=== PATIENT | female | born 1935 | race Caucasian/White ===

== ENCOUNTER 2016-12-19 14:54 | Inpatient (IN) | payer MEDICARE, BC ==
--- NOTE | 2016-12-19 15:20 | EDM.PDOC ---
ED HPI GENERAL MEDICAL PROBLEM - General Chief Complaint: General Stated Complaint: trouble breathing, swollen ankles Time Seen by Provider: 12/19/16 15:10 Source of Information: Reports: Patient History Limitations: Reports: No Limitations - History of Present Illness INITIAL COMMENTS - FREE TEXT/NARRATIVE: Patient is a 81-year-old female who was transferred from the [facility] with chief complaint of chest tightness shortness of breath cold sweats for the past 10 days oxygen saturation 75% on room air on arrival Onset: Gradual Duration: Day(s):, Getting Worse Location: Reports: Chest Severity: Moderate Improves with: Reports: Other (Fan blowing into her face) Worsens with: Reports: Other (Lying on her back) Associated Symptoms: Reports: Fever/Chills - Related Data Allergies Allergy/AdvReac Type Severity Reaction Status Date / Time codeine Allergy Other Verified 12/19/16 15:47 Home Meds: Home Meds Albuterol Sulfate [Proair Hfa] 2 puff IH Q6HR PRN 12/19/16 [History] Aspirin [Halfprin] 1 tab PO DAILY 12/19/16 [History] Fluticasone/Salmeterol [Advair Hfa 230-21 Mcg Inhaler] 1 puff IH BID 12/19/16 [ History] Furosemide [Furosemide] 1 tab PO BID 12/19/16 [History] Furosemide [Lasix] 20 mg PO SUTUTHSA 12/19/16 [History] Furosemide [Lasix] 40 mg PO MOWEFR 12/19/16 [History] Polyethylene Glycol [Polyox Wsr-301] 1 applic EYEBOTH DAILY 12/19/16 [History] Sennosides/Docusate Sodium [Senna-Docusate Sodium Tablet] 1 each PO BID [History] traMADol HCl [Ultram] 50 mg PO Q8HR PRN 12/19/16 [History] Social & Family History - Tobacco Use Smoking Status *Q: Former Smoker Used Tobacco, but Quit: Yes Month Tobacco Last Used: 01 - Caffeine Use Caffeine Use: Reports: None - Recreational Drug Use Recreational Drug Use: No ED ROS GENERAL - Review of Systems Review Of Systems: See Below Constitutional: Reports: Chills, Night Sweats Respiratory: Reports: Shortness of Breath, Cough, Sputum Cardiovascular: Reports: No Symptoms Endocrine: Reports: No Symptoms GI/Abdominal: Reports: No Symptoms : Reports: No Symptoms Musculoskeletal: Reports: No Symptoms Skin: Reports: No Symptoms Neurological: Reports: No Symptoms Psychiatric: Reports: No Symptoms Hematologic/Lymphatic: Reports: No Symptoms ED EXAM, GENERAL - Physical Exam Exam: See Below Exam Limited By: No Limitations General Appearance: WD/WN, Mild Distress, Thin Eye Exam: Bilateral Eye: EOMI, PERRL Ears: Normal External Exam, Normal Canal, Hearing Grossly Normal, Normal TMs Nose: Normal Inspection, Normal Mucosa, No Blood Throat/Mouth: Normal Inspection, Normal Lips, Normal Teeth, Normal Gums, Normal Oropharynx, Normal Voice, No Airway Compromise, Other (Patient is very raspy) Head: Atraumatic, Normocephalic Neck: Normal Inspection, Supple, Non-Tender, Full Range of Motion Respiratory/Chest: Decreased Breath Sounds, Crackles (Right base), Rales (Right base), Wheezing, Stridor, Prolonged Expiration Cardiovascular: Normal Peripheral Pulses, Regular Rate, Rhythm, No Edema, No Gallop, No JVD, No Murmur, No Rub Peripheral Pulses: 0: Posterior Tibial (R), 1+: Posterior Tibial (L) ( dopplerable), 2+: Dorsalis Pedis (L), Dorsalis Pedis (R) GI/Abdominal: Normal Bowel Sounds, Soft, Non-Tender, No Organomegaly, No Distention, No Abnormal Bruit, No Mass (Female) Exam: Deferred Rectal (Female) Exam: Deferred Back Exam: Normal Inspection, Full Range of Motion, NT Extremities: Normal Inspection, Normal Range of Motion, Non-Tender, Normal Capillary Refill, No Pedal Edema Neurological: Alert, Oriented, CN II-XII Intact, Normal Cognition, Normal Gait, Normal Reflexes, No Motor/Sensory Deficits Psychiatric: Normal Affect, Normal Mood Skin Exam: Warm, Dry, Intact, Normal Color, No Rash Course - Vital Signs Last Recorded V/S: Last Vital Signs Temp 97.6 F 12/19/16 14:56 Pulse 101 H 12/19/16 14:56 Resp 20 12/19/16 14:58 BP 151/59 H 12/19/16 14:56 Pulse Ox 97 12/19/16 14:58 - Orders/Labs/Meds Orders: Active Orders 24 hr Category Date Time Status RT Aerosol Therapy [RC] ASDIRECTED Care 12/19/16 15:35 Ordered Chest 2V [CR] Stat Exams 12/19/16 15:03 Ordered CULTURE BLOOD [BC] Stat Lab 12/19/16 15:20 Ordered CULTURE BLOOD [BC] Stat Lab 12/19/16 15:20 Ordered CULTURE SPUTUM + SMEAR [RM] Stat Lab 12/19/16 15:27 Uncollected UA W/MICROSCOPIC [URIN] Stat Lab 12/19/16 15:40 Uncollected Sodium Chloride 0.9% [Saline Flush] Med 12/19/16 15:35 Ordered 10 ml FLUSH ASDIRECTED PRN Blood Culture x2 Reflex Set [OM.PC] Stat Oth 12/19/16 15:20 Ordered Saline Lock Insert [OM.PC] Stat Oth 12/19/16 15:36 Ordered Medication Orders Sodium Chloride (Saline Flush) 10 ml FLUSH ASDIRECTED PRN PRN Reason: Keep Vein Open Labs: Laboratory Tests 12/19/16 12/19/16 Range/Units 15:02 15:03 WBC 9.0 (4.0-10.2) K/uL RBC 4.86 (3.77-5.09) M/uL Hgb 15.1 (11.7-15.5) g/dL Hct 46.4 H (34.0-46.0) % MCV 95.5 D (84.0-98.0) fL MCH 31.1 (28.2-33.3) pg MCHC 32.5 (31.7-36.0) g/dL RDW 14.9 H (11.2-14.1) % Plt Count 104 L (150-350) K/uL Neut % (Auto) 77.3 (45.0-80.0) % Lymph % (Auto) 5.1 L (10.0-50.0) % [place] % (Auto) 15.6 H (2.0-14.0) % Eos % (Auto) 1.7 (0.0-5.0) % Baso % (Auto) 0.3 (0.0-2.0) % Neut # (Auto) 6.96 (1.40-7.00) K/uL Lymph # (Auto) 0.46 L (0.50-3.50) K/uL [place] # (Auto) 1.41 H (0.00-1.00) K/uL Eos # (Auto) 0.15 (0.00-0.50) K/uL Baso # (Auto) 0.03 (0.00-0.20) K/uL Sodium 135 L D (136-145) mmol/L Potassium 4.6 (3.5-5.1) mmol/L Chloride 101 (98-107) mmol/L Carbon Dioxide 26.6 (21.0-32.0) mmol/L BUN 31 H (7-18) mg/dL Creatinine 0.82 (0.51-1.17) mg/dL Est Cr Clr Drug Dosing 44.67 mL/min Estimated GFR (MDRD) > 60 mL/min Glucose 97 (74-106) mg/dL Calcium 8.9 (8.5-10.1) mg/dL NT-Pro-B Natriuret Pep 1145 H (0-125) pg/mL Meds: Medications Generic Name Dose Route Start Last Admin Trade Name Freq PRN Reason Stop Dose Admin Sodium Chloride 10 ml 12/19/16 15:35 Saline Flush FLUSH ASDIRECTED PRN Keep Vein Open Discontinued Medications Generic Name Dose Route Start Last Admin Trade Name Freq PRN Reason Stop Dose Admin Albuterol/Ipratropium 3 ml 12/19/16 15:34 12/19/16 15:48 Duoneb 3.0-0.5 Mg/3 Ml NEB 12/19/16 15:35 3 ml ONETIME ONE Administration Departure - Departure Time of Disposition: 15:51 Disposition: Admitted As Inpatient 67 Condition: Poor Clinical Impression: CHF, Congestive heart failure, Hypoxemia, COPD (chronic obstructive pulmonary disease), Pneumonia - Discharge Information Referrals: Dorian Mcarthur PA [Primary Care Provider] - Forms: ED Department Discharge Care Plan Goals: Patient will be admitted for aggressive antibiotic treatment and diuresis we will continue her medicines for COPD - Problem List & Annotations (1) CHF, Congestive heart failure SNOMED Code(s): 58678303 Code(s): I50.9 - HEART FAILURE, UNSPECIFIED Status: Acute Annotation/ Comment:: At this time her BMP was 1145 chest x-ray reveals some congestion we will go ahead and admit her for diureses (2) COPD (chronic obstructive pulmonary disease) SNOMED Code(s): 68999643 Code(s): J44.9 - CHRONIC OBSTRUCTIVE PULMONARY DISEASE, UNSPECIFIED Status : Acute Annotation/Comment:: Past medical history of COPD hypoxemia we will admit her continue her medications (3) Pneumonia SNOMED Code(s): 010762924 Code(s): J18.9 - PNEUMONIA, UNSPECIFIED ORGANISM Status: Acute Annotation /Comment:: Chest x-ray revealed consolidation right middle and base we'll go ahead start her on antibiotics at this time patient lives at home therefore his community-acquired pneumonia Qualifiers: Pneumonia type: due to unspecified organism Laterality: left Lung location: lower lobe of lung Qualified Code(s): J18.1 - Lobar pneumonia, unspecified organism - Problem List Review Problem List Initiated/Reviewed/Updated: Yes - My Orders Last 24 Hours: My Active Orders 12/19/16 15:03 Chest 2V [CR] Stat 12/19/16 15:20 CULTURE BLOOD [BC] Stat CULTURE BLOOD [BC] Stat Blood Culture x2 Reflex Set [OM.PC] Stat 12/19/16 15:27 CULTURE SPUTUM + SMEAR [RM] Stat 12/19/16 15:35 RT Aerosol Therapy [RC] ASDIRECTED Sodium Chloride 0.9% [Saline Flush] 10 ml FLUSH ASDIRECTED PRN 12/19/16 15:36 Saline Lock Insert [OM.PC] Stat 12/19/16 15:40 UA W/MICROSCOPIC [URIN] Stat - Assessment/Plan Last 24 Hours: My Active Orders 12/19/16 15:03 Chest 2V [CR] Stat 12/19/16 15:20 CULTURE BLOOD [BC] Stat CULTURE BLOOD [BC] Stat Blood Culture x2 Reflex Set [OM.PC] Stat 12/19/16 15:27 CULTURE SPUTUM + SMEAR [RM] Stat 12/19/16 15:35 RT Aerosol Therapy [RC] ASDIRECTED Sodium Chloride 0.9% [Saline Flush] 10 ml FLUSH ASDIRECTED PRN 12/19/16 15:36 Saline Lock Insert [OM.PC] Stat 12/19/16 15:40 UA W/MICROSCOPIC [URIN] Stat
[2016-12-19] MEDS ORDERED: Albuterol/Ipratropium 3.0-0.5 MG/3 ML Neb Soln NEB ONE (15:34)
[2016-12-19 15:49] LABS: CHLORIDE,CL 101 mmol/L (98-107); SODIUM,NA 135 mmol/L (136-145)
[2016-12-19] MEDS ORDERED: Furosemide 20 MG Tab PO SCH ×2 (16:15→18:00)
[2016-12-19] MEDS ORDERED: traMADol 50 MG Tab PO PRN (16:15)
[2016-12-19] MEDS: Furosemide 40 MG/4 ML VIAL IVPUSH SCH (17:20)
[2016-12-19] MEDS: Sodium Chloride 0.9% 10 ML Syringe FLUSH PRN ×2 (17:20→22:10)
[2016-12-19] MEDS: methylPREDNISolone Sodium Succinate 40 MG/1 ML SDV IVPUSH SCH ×2 (17:29→22:10)
[2016-12-19] MEDS: Azithromycin 500 MG in Sodium Chloride 0.9% 250 ML IV SCH (17:36)
[2016-12-19] MEDS: cefTRIAXone 1 GM in Sodium Chloride 0.9% 100 ML IV SCH (19:49)
[2016-12-20] MEDS: methylPREDNISolone Sodium Succinate 40 MG/1 ML SDV IVPUSH SCH ×4 (03:59→21:56)
[2016-12-20] MEDS: Sodium Chloride 0.9% 10 ML Syringe FLUSH PRN ×7 (04:03→21:56)
[2016-12-20] MEDS: Albuterol/Ipratropium 3.0-0.5 MG/3 ML Neb Soln NEB PRN (04:12)
[2016-12-20] MEDS ORDERED: Enoxaparin 30 MG/0.3 ML Syringe SUBCUT SCH (08:00)
[2016-12-20] MEDS: Polyvinyl Alcohol 1.4% Ophth Soln 15 ML Bottle EYEBOTH SCH (08:03)
[2016-12-20] MEDS: Aspirin 81 MG Tab.EC PO SCH (08:03)
[2016-12-20] MEDS: Furosemide 40 MG/4 ML VIAL IVPUSH SCH (08:04)
[2016-12-20] MEDS: cefTRIAXone 1 GM in Sodium Chloride 0.9% 100 ML IV SCH ×2 (08:04→17:13)
[2016-12-20 08:09] LABS: CHLORIDE,CL 99 mmol/L (98-107); SODIUM,NA 135 mmol/L (136-145)
--- NOTE | 2016-12-20 11:59 | PCM.PN ---
- General Info Date of Service: 12/20/16 Admission Dx/Problem (Free Text): Pneumonia sepsis CHF patient overall doing better less short of breath able ambulate, swelling improved, no fever, still on oxygen, feeling much better Functional Status: Reports: Ambulating - Review of Systems General: Reports: No Symptoms HEENT: Reports: No Symptoms Pulmonary: Reports: Shortness of Breath Cardiovascular: Reports: No Symptoms Gastrointestinal: Reports: No Symptoms Genitourinary: Reports: No Symptoms Musculoskeletal: Reports: No Symptoms Skin: Reports: No Symptoms Neurological: Reports: No Symptoms Psychiatric: Reports: Agitation - Patient Data Vitals - Most Recent: Last Vital Signs Temp 97.9 F 12/20/16 08:00 Pulse 79 12/20/16 08:00 Resp 17 12/20/16 08:00 BP 121/61 12/20/16 08:00 Pulse Ox 94 L 12/20/16 08:00 Weight - Most Recent: 107 lb 6.406 oz I&O - Last 24 Hours: Intake & Output 12/19/16 12/20/16 12/20/16 22:59 06:59 14:59 Intake Total 690 840 Output Total 1600 300 Balance -910 540 Lab Results Last 24 Hours: Laboratory Results - last 24 hr 12/20/16 12/20/16 Range/Units 07:40 07:40 Sodium 135 L (136-145) mmol/L Potassium 4.0 (3.5-5.1) mmol/L Chloride 99 (98-107) mmol/L Carbon Dioxide 28.4 (21.0-32.0) mmol/L BUN 23 H (7-18) mg/dL Creatinine 0.71 (0.51-1.17) mg/dL Est Cr Clr Drug Dosing 48.60 mL/min Estimated GFR (MDRD) > 60 mL/min Glucose 160 H (74-106) mg/dL Calcium 8.2 L (8.5-10.1) mg/dL Magnesium 1.9 (1.8-2.4) mg/dL Med Orders - Current: Current Medications Albuterol/Ipratropium (Duoneb 3.0-0.5 Mg/3 Ml) 3 ml NEB Q4HRRT PRN PRN Reason: Shortness of Breath Last Admin: 12/20/16 04:12 Dose: 3 ml Artificial Tears (Liquitears 1.4% Ophth Soln) 1 ml EYEBOTH DAILY [facility] Last Admin: 12/20/16 08:03 Dose: 1 drop Aspirin (Halfprin) 81 mg PO DAILY [facility] Last Admin: 12/20/16 08:03 Dose: 81 mg Furosemide (Lasix) 40 mg IVPUSH DAILY [facility] Last Admin: 12/20/16 08:04 Dose: 40 mg Azithromycin 500 mg/ Sodium (Chloride) 250 mls @ 250 mls/hr IV Q24H [facility] Last Admin: 12/19/16 17:36 Dose: 250 mls/hr Ceftriaxone Sodium 1 gm/ (Sodium Chloride) 100 mls @ 200 mls/hr IV BID [facility] Last Admin: 12/20/16 08:04 Dose: 200 mls/hr Methylprednisolone Sodium Succinate (Solu-Medrol) 40 mg IVPUSH Q6H [facility] Last Admin: 12/20/16 10:49 Dose: 40 mg Senna/Docusate Sodium (Senna Plus) 1 tab PO BID [facility] Last Admin: 12/20/16 08:03 Dose: 1 tab Sodium Chloride (Saline Flush) 10 ml FLUSH ASDIRECTED PRN PRN Reason: Keep Vein Open Last Admin: 12/20/16 10:49 Dose: 10 ml Tramadol HCl (Ultram) 50 mg PO Q8H PRN PRN Reason: Pain Discontinued Medications Albuterol/Ipratropium (Duoneb 3.0-0.5 Mg/3 Ml) 3 ml NEB ONETIME ONE Stop: 12/19/16 15:35 Last Admin: 12/19/16 15:48 Dose: 3 ml Furosemide (Lasix) mg PO BID [facility] Furosemide (Lasix) 20 mg PO SUTUTHSA [facility] Furosemide (Lasix) 40 mg PO MOWEFR [facility] Last Admin: 12/19/16 17:24 Dose: Not Given - Exam Quality Assessment: Supplemental Oxygen General: Alert, Oriented HEENT: Pupils Equal, Pupils Reactive, EOMI, Mucous Membr. Moist/[place] Neck: Supple Lungs: Decreased Breath Sounds, Rales (Right base) Cardiovascular: Regular Rate, Regular Rhythm GI/Abdominal Exam: Normal Bowel Sounds (Female) Exam: Deferred Extremities: Pedal Edema (Improvement) Skin: Warm, Dry, Intact Neurological: No New Focal Deficit Psy/Mental Status: Alert, Normal Affect, Normal Mood - Problem List & Annotations (1) CHF, Congestive heart failure SNOMED Code(s): 85662605 Code(s): I50.9 - HEART FAILURE, UNSPECIFIED Status: Acute Current Visit: Yes Annotation/Comment:: Patient breathing easier lower extremity edema significantly improved will continue her on Lasix IV (2) COPD (chronic obstructive pulmonary disease) SNOMED Code(s): 68659795 Code(s): J44.9 - CHRONIC OBSTRUCTIVE PULMONARY DISEASE, UNSPECIFIED Status : Acute Current Visit: Yes Qualifiers: COPD type: COPD with acute lower respiratory infection Qualified Code(s): J44.0 - Chronic obstructive pulmonary disease with acute lower respiratory infection Annotation/Comment:: Blood cultures positive for strep pneumo patient on appropriate antibiotics (3) Pneumonia SNOMED Code(s): 129792545 Code(s): J18.9 - PNEUMONIA, UNSPECIFIED ORGANISM Status: Acute Current Visit: Yes Qualifiers: Pneumonia type: due to unspecified organism Laterality: left Lung location: lower lobe of lung Qualified Code(s): J18.1 - Lobar pneumonia, unspecified organism Annotation/Comment:: Chest x-ray revealed consolidation right middle and base we 'll go ahead start her on antibiotics at this time patient lives at home therefore his community-acquired pneumonia (4) Sepsis SNOMED Code(s): 36198395 Code(s): A41.9 - SEPSIS, UNSPECIFIED ORGANISM Status: Acute Current Visit : Yes Qualifiers: Sepsis type: Pneumococcus Qualified Code(s): A40.3 - Sepsis due to Streptococcus pneumoniae Annotation/Comment:: Patient on appropriate antibiotics feeling much better we' ll continue antibiotics IV - Problem List Review Problem List Initiated/Reviewed/Updated: Yes - My Orders Last 24 Hours: My Active Orders 12/19/16 16:03 Patient Status [ADT] Routine Ambulate [RC] ASDIRECTED May Shower [RC] ASDIRECTED Up ad Katya [RC] ASDIRECTED Vital Signs [RC] Q4H 12/19/16 16:08 Oxygen Therapy [RC] CONTINUOUS 12/19/16 16:09 Antiembolic Devices [RC] .Routine VTE/DVT Education [RC] PER UNIT ROUTINE 12/19/16 16:13 Albuterol/Ipratropium [DuoNeb 3.0-0.5 MG/3 ML] 3 ml NEB Q4HRRT PRN 12/19/16 16:14 RT Aerosol Therapy [RC] ASDIRECTED 12/19/16 16:15 Azithromycin [Zithromax] 500 mg Sodium Chloride 0.9% [Normal Saline] 250 ml IV Q24H Furosemide [Lasix] 40 mg IVPUSH DAILY traMADol [Ultram] 50 mg PO Q8H PRN 12/19/16 16:30 methylPREDNISolone Sod Succ [Solu-MEDROL] 40 mg IVPUSH Q6H 12/19/16 18:00 Docusate Sodium/Sennosides [Senna Plus] 1 tab PO BID cefTRIAXone [Rocephin] 1 gm Sodium Chloride 0.9% [Normal Saline] 100 ml IV BID 12/19/16 18:22 Code Status [Resuscitation Status] Routine 12/19/16 Dinner Heart Healthy Diet [DIET] 12/20/16 08:00 Aspirin [Halfprin] 81 mg PO DAILY Polyvinyl Alcohol [LiquiTears 1.4% Ophth Soln] 1 ml EYEBOTH DAILY 12/21/16 08:00 BMP [BASIC METABOLIC PANEL,BMP] [CHEM] DAILY 12/22/16 08:00 BMP [BASIC METABOLIC PANEL,BMP] [CHEM] DAILY - Assessment Assessment:: No pneumonia, sepsis, congestive heart failure - Plan Plan:: Continue current therapy
[2016-12-20] MEDS: Azithromycin 500 MG in Sodium Chloride 0.9% 250 ML IV SCH (15:56)
[2016-12-20] MEDS ORDERED: Furosemide 20 MG Tab PO SCH (16:15)
[2016-12-21] MEDS: methylPREDNISolone Sodium Succinate 40 MG/1 ML SDV IVPUSH SCH ×4 (04:06→22:25)
[2016-12-21] MEDS: Sodium Chloride 0.9% 10 ML Syringe FLUSH PRN ×2 (04:06→22:25)
[2016-12-21] MEDS: Aspirin 81 MG Tab.EC PO SCH (08:04)
[2016-12-21] MEDS: Furosemide 40 MG/4 ML VIAL IVPUSH SCH (08:05)
[2016-12-21] MEDS: Polyvinyl Alcohol 1.4% Ophth Soln 15 ML Bottle EYEBOTH SCH (08:06)
[2016-12-21] MEDS: cefTRIAXone 1 GM in Sodium Chloride 0.9% 100 ML IV SCH ×2 (08:06→17:41)
[2016-12-21 08:08] LABS: CHLORIDE,CL 102 mmol/L (98-107); SODIUM,NA 138 mmol/L (136-145)
--- NOTE | 2016-12-21 09:03 | PCM.PN ---
- General Info Date of Service: 12/21/16 Admission Dx/Problem (Free Text): Patient seen today feeling tired last shortness of breath overall improving Functional Status: Reports: Ambulating - Review of Systems General: Reports: No Symptoms HEENT: Reports: No Symptoms Pulmonary: Reports: Shortness of Breath, Wheezing (Expiratory) Cardiovascular: Reports: No Symptoms Gastrointestinal: Reports: No Symptoms Genitourinary: Reports: No Symptoms Musculoskeletal: Reports: No Symptoms Skin: Reports: No Symptoms Neurological: Reports: Confusion Psychiatric: Reports: No Symptoms - Patient Data Vitals - Most Recent: Last Vital Signs Temp 98.0 F 12/21/16 08:20 Pulse 72 12/21/16 08:20 Resp 16 12/21/16 08:20 BP 151/78 H 12/21/16 08:20 Pulse Ox 94 L 12/21/16 08:20 Weight - Most Recent: 107 lb 6.406 oz I&O - Last 24 Hours: Intake & Output 12/20/16 12/21/16 12/21/16 22:59 06:59 14:59 Intake Total 470 60 600 Balance 470 60 600 Lab Results Last 24 Hours: Laboratory Results - last 24 hr 12/20/16 12/20/16 12/21/16 Range/Units 07:40 07:40 07:20 WBC 3.0 L (4.0-10.2) K/uL RBC 4.43 (3.77-5.09) M/uL Hgb 13.6 D (11.7-15.5) g/dL Hct 41.9 (34.0-46.0) % MCV 94.6 (84.0-98.0) fL MCH 30.7 (28.2-33.3) pg MCHC 32.5 (31.7-36.0) g/dL RDW 14.2 H (11.2-14.1) % Plt Count 97 L (150-350) K/uL Neut % (Auto) 86.5 H (45.0-80.0) % Lymph % (Auto) 6.1 L (10.0-50.0) % [place] % (Auto) 7.1 (2.0-14.0) % Eos % (Auto) 0.0 (0.0-5.0) % Baso % (Auto) 0.3 (0.0-2.0) % Neut # (Auto) 2.56 (1.40-7.00) K/uL Lymph # (Auto) 0.18 L (0.50-3.50) K/uL [place] # (Auto) 0.21 (0.00-1.00) K/uL Eos # (Auto) 0.00 (0.00-0.50) K/uL Baso # (Auto) 0.01 (0.00-0.20) K/uL Sodium 138 (136-145) mmol/L Potassium 4.0 (3.5-5.1) mmol/L Chloride 102 (98-107) mmol/L Carbon Dioxide 32.1 H (21.0-32.0) mmol/L BUN 28 H (7-18) mg/dL Creatinine 0.68 (0.51-1.17) mg/dL Est Cr Clr Drug Dosing 50.75 mL/min Estimated GFR (MDRD) > 60 mL/min Glucose 131 H (74-106) mg/dL Calcium 8.2 L (8.5-10.1) mg/dL Magnesium 1.9 (1.8-2.4) mg/dL 12/21/16 Range/Units 08:30 WBC 5.4 (4.0-10.2) K/uL RBC 4.53 (3.77-5.09) M/uL Hgb 14.1 (11.7-15.5) g/dL Hct 43.0 (34.0-46.0) % MCV 94.9 (84.0-98.0) fL MCH 31.1 (28.2-33.3) pg MCHC 32.8 (31.7-36.0) g/dL RDW 14.1 (11.2-14.1) % Plt Count 107 L (150-350) K/uL Neut % (Auto) 88.9 H (45.0-80.0) % Lymph % (Auto) 5.0 L (10.0-50.0) % [place] % (Auto) 5.9 (2.0-14.0) % Eos % (Auto) 0.0 (0.0-5.0) % Baso % (Auto) 0.2 (0.0-2.0) % Neut # (Auto) 4.81 (1.40-7.00) K/uL Lymph # (Auto) 0.27 L (0.50-3.50) K/uL [place] # (Auto) 0.32 (0.00-1.00) K/uL Eos # (Auto) 0.00 (0.00-0.50) K/uL Baso # (Auto) 0.01 (0.00-0.20) K/uL Sodium (136-145) mmol/L Potassium (3.5-5.1) mmol/L Chloride (98-107) mmol/L Carbon Dioxide (21.0-32.0) mmol/L BUN (7-18) mg/dL Creatinine (0.51-1.17) mg/dL Est Cr Clr Drug Dosing mL/min Estimated GFR (MDRD) mL/min Glucose (74-106) mg/dL Calcium (8.5-10.1) mg/dL Magnesium (1.8-2.4) mg/dL [place] Results Last 24 Hours: Microbiology 12/19/16 16:01 Aerobic Blood Culture - Preliminary Blood - Venous - Lab Draw NO GROWTH AFTER 1 DAY Anaerobic Blood Culture - Final Gram Positive Rods Med Orders - Current: Current Medications Albuterol/Ipratropium (Duoneb 3.0-0.5 Mg/3 Ml) 3 ml NEB Q4HRRT PRN PRN Reason: Shortness of Breath Last Admin: 12/20/16 04:12 Dose: 3 ml Artificial Tears (Liquitears 1.4% Ophth Soln) 1 ml EYEBOTH DAILY [facility] Last Admin: 12/21/16 08:06 Dose: 1 drop Aspirin (Halfprin) 81 mg PO DAILY [facility] Last Admin: 12/21/16 08:04 Dose: 81 mg Furosemide (Lasix) 40 mg IVPUSH DAILY [facility] Last Admin: 12/21/16 08:05 Dose: 40 mg Azithromycin 500 mg/ Sodium (Chloride) 250 mls @ 250 mls/hr IV Q24H [facility] Last Admin: 12/20/16 15:56 Dose: 250 mls/hr Ceftriaxone Sodium 1 gm/ (Sodium Chloride) 100 mls @ 200 mls/hr IV BID [facility] Last Admin: 12/21/16 08:06 Dose: 200 mls/hr Methylprednisolone Sodium Succinate (Solu-Medrol) 40 mg IVPUSH Q6H [facility] Last Admin: 12/21/16 04:06 Dose: 40 mg Senna/Docusate Sodium (Senna Plus) 1 tab PO BID [facility] Last Admin: 12/21/16 08:05 Dose: 1 tab Sodium Chloride (Saline Flush) 10 ml FLUSH ASDIRECTED PRN PRN Reason: Keep Vein Open Last Admin: 12/21/16 04:06 Dose: 10 ml Tramadol HCl (Ultram) 50 mg PO Q8H PRN PRN Reason: Pain Discontinued Medications Albuterol/Ipratropium (Duoneb 3.0-0.5 Mg/3 Ml) 3 ml NEB ONETIME ONE Stop: 12/19/16 15:35 Last Admin: 12/19/16 15:48 Dose: 3 ml Furosemide (Lasix) mg PO BID [facility] Furosemide (Lasix) 20 mg PO SUTUTHSA [facility] Furosemide (Lasix) 40 mg PO MOWEFR [facility] Last Admin: 12/19/16 17:24 Dose: Not Given - Exam Quality Assessment: Supplemental Oxygen General: Alert, Oriented HEENT: Pupils Equal, Pupils Reactive, EOMI, Mucous Membr. Moist/[place] Neck: Supple Lungs: Decreased Breath Sounds, Wheezing (Expiratory) Cardiovascular: Regular Rate, Regular Rhythm GI/Abdominal Exam: Normal Bowel Sounds, Soft, Non-Tender, No Organomegaly, No Distention, No Abnormal Bruit, No Mass, Pelvis Stable (Female) Exam: Deferred Back Exam: Normal Inspection, Full Range of Motion Extremities: Normal Inspection, Normal Range of Motion, Pedal Edema (Improved significantly) Skin: Warm, Dry, Intact Neurological: No New Focal Deficit Psy/Mental Status: Alert, Normal Affect, Normal Mood - Problem List & Annotations (1) CHF, Congestive heart failure SNOMED Code(s): 20506501 Code(s): I50.9 - HEART FAILURE, UNSPECIFIED Status: Acute Current Visit: Yes Annotation/Comment:: Patient breathing easier lower extremity edema significantly improved will continue her on Lasix IV (2) COPD (chronic obstructive pulmonary disease) SNOMED Code(s): 28685654 Code(s): J44.9 - CHRONIC OBSTRUCTIVE PULMONARY DISEASE, UNSPECIFIED Status : Acute Current Visit: Yes Qualifiers: COPD type: COPD with acute lower respiratory infection Qualified Code(s): J44.0 - Chronic obstructive pulmonary disease with acute lower respiratory infection Annotation/Comment:: Blood cultures positive for strep pneumo patient on appropriate antibiotics (3) Pneumonia SNOMED Code(s): 102429680 Code(s): J18.9 - PNEUMONIA, UNSPECIFIED ORGANISM Status: Acute Current Visit: Yes Qualifiers: Pneumonia type: due to unspecified organism Laterality: left Lung location: lower lobe of lung Qualified Code(s): J18.1 - Lobar pneumonia, unspecified organism Annotation/Comment:: Chest x-ray revealed consolidation right middle and base we 'll go ahead start her on antibiotics at this time patient lives at home therefore his community-acquired pneumonia (4) Sepsis SNOMED Code(s): 11152517 Code(s): A41.9 - SEPSIS, UNSPECIFIED ORGANISM Status: Acute Current Visit : Yes Qualifiers: Sepsis type: Pneumococcus Qualified Code(s): A40.3 - Sepsis due to Streptococcus pneumoniae Annotation/Comment:: Patient on appropriate antibiotics feeling much better we' ll continue antibiotics IV - Problem List Review Problem List Initiated/Reviewed/Updated: Yes - My Orders Last 24 Hours: My Active Orders 12/20/16 08:00 Aspirin [Halfprin] 81 mg PO DAILY Polyvinyl Alcohol [LiquiTears 1.4% Ophth Soln] 1 ml EYEBOTH DAILY 12/22/16 08:00 BMP [BASIC METABOLIC PANEL,BMP] [CHEM] DAILY - Assessment Assessment:: No pneumonia, sepsis, congestive heart failure - Plan Plan:: Continue current therapy
[2016-12-21] MEDS: Acetaminophen 325 MG Tab PO PRN (10:51)
[2016-12-21] MEDS: Azithromycin 500 MG in Sodium Chloride 0.9% 250 ML IV SCH (16:24)
[2016-12-22] MEDS: methylPREDNISolone Sodium Succinate 40 MG/1 ML SDV IVPUSH SCH ×2 (05:16→11:03)
[2016-12-22] MEDS: Sodium Chloride 0.9% 10 ML Syringe FLUSH PRN ×3 (05:16→11:02)
[2016-12-22] MEDS: Albuterol/Ipratropium 3.0-0.5 MG/3 ML Neb Soln NEB PRN ×2 (05:28→11:03)
[2016-12-22 07:34] LABS: CHLORIDE,CL 101 mmol/L (98-107); SODIUM,NA 140 mmol/L (136-145)
[2016-12-22] MEDS: cefTRIAXone 1 GM in Sodium Chloride 0.9% 100 ML IV SCH (08:11)
[2016-12-22] MEDS: Furosemide 40 MG/4 ML VIAL IVPUSH SCH (08:11)
[2016-12-22] MEDS: Aspirin 81 MG Tab.EC PO SCH (08:26)
[2016-12-22] MEDS: Polyvinyl Alcohol 1.4% Ophth Soln 15 ML Bottle EYEBOTH SCH (08:35)
--- NOTE | 2016-12-22 10:09 | PCM.DCSUM1 ---
Discharge Summary - Hospital Course Free Text/Narrative:: Patient is a 81-year-old who is seen today doing much better feels better ready to go home at this time we reviewed her chart and it shows patient to be ready to go. Patient states she would like to go home. Does not want swingbed care at this time. Physical exam patient is normocephalic atraumatic eyes PERRLA lungs clear to localization Rales and wheezing resolved heart regular rate and rhythm abdomen soft nontender no masses organomegaly extremities full range of motion no edema no cyanosis no clubbing - Discharge Data Discharge Date: 12/22/16 Discharge Disposition: Home, Self-Care 01 Condition: Good - Discharge Diagnosis/Problem(s) (1) CHF, Congestive heart failure SNOMED Code(s): 67694672 ICD Code: I50.9 - HEART FAILURE, UNSPECIFIED Status: Acute Current Visit : Yes Problem Details: Patient will DC On lasix PO and PO antibiotics at DC. (2) COPD (chronic obstructive pulmonary disease) SNOMED Code(s): 86680611 ICD Code: J44.9 - CHRONIC OBSTRUCTIVE PULMONARY DISEASE, UNSPECIFIED Status : Acute Current Visit: Yes Problem Details: Blood cultures positive for gram positive rods. patient on appropriate antibiotics. Will continue at DC. Qualifiers: COPD type: COPD with acute lower respiratory infection Qualified Code(s): J44.0 - Chronic obstructive pulmonary disease with acute lower respiratory infection (3) Pneumonia SNOMED Code(s): 440981239 ICD Code: J18.9 - PNEUMONIA, UNSPECIFIED ORGANISM Status: Acute Current Visit: Yes Problem Details: Chest x ray shows stable x ray. Will continue antibiotics PO upon DC. Qualifiers: Pneumonia type: due to unspecified organism Laterality: left Lung location: lower lobe of lung Qualified Code(s): J18.1 - Lobar pneumonia, unspecified organism (4) Sepsis SNOMED Code(s): 16090346 ICD Code: A41.9 - SEPSIS, UNSPECIFIED ORGANISM Status: Acute Current Visit: Yes Problem Details: Patient on appropriate antibiotics. Responding well. Will continue these upon DC. Qualifiers: Sepsis type: Pneumococcus Qualified Code(s): A40.3 - Sepsis due to Streptococcus pneumoniae - Patient Summary/Data Consults: Consultations 12/21/16 09:04 OT Evaluation and Treatment [CONS] Routine PT Evaluation and Treatment [CONS] Routine - Patient Instructions Diet: Regular Diet as Tolerated Activity: As Tolerated Showering/Bathing: May Shower - Discharge Plan Prescriptions/Med Rec: Albuterol/Ipratropium [DuoNeb 3.0-0.5 MG/3 ML] 3 ml NEB Q4HRRT PRN #1 box PRN Reason: Shortness Of Breath Azithromycin [Zithromax] 500 mg PO DAILY #5 tablet Budesonide/Formoterol [Symbicort 80-4.5 MCG] 1 puff INH BID #1 inhaler Cefprozil [Cefzil] 500 mg PO BID #10 tablet Furosemide [Lasix] 40 mg PO DAILY #30 tablet Prednisone [IJD: predniSONE] 20 mg PO WITHBREAKFAST #5 tab Home Medications: Home Meds Albuterol Sulfate [Proair Hfa] 2 puff IH Q6HR PRN 12/19/16 [History] Aspirin [Halfprin] 1 tab PO DAILY 12/19/16 [History] Fluticasone/Salmeterol [Advair Hfa 230-21 Mcg Inhaler] 1 puff IH BID 12/19/16 [ History] Polyethylene Glycol [Polyox Wsr-301] 1 applic EYEBOTH DAILY 12/19/16 [History] Sennosides/Docusate Sodium [Senna-Docusate Sodium Tablet] 1 each PO BID [History] traMADol HCl [Ultram] 50 mg PO Q8HR PRN 12/19/16 [History] Albuterol/Ipratropium [DuoNeb 3.0-0.5 MG/3 ML] 3 ml NEB Q4HRRT PRN #1 box [Rx] Azithromycin [Zithromax] 500 mg PO DAILY #5 tablet 12/22/16 [Rx] Budesonide/Formoterol [Symbicort 80-4.5 MCG] 1 puff INH BID #1 inhaler 12/22/16 [Rx] Cefprozil [Cefzil] 500 mg PO BID #10 tablet 12/22/16 [Rx] Furosemide [Lasix] 40 mg PO DAILY #30 tablet 12/22/16 [Rx] Prednisone [IJD: predniSONE] 20 mg PO WITHBREAKFAST #5 tab 12/22/16 [Rx] Forms: ED Department Discharge Referrals: Dorian Mcarthur PA [Primary Care Provider] - (Follow up in 1 week for post hospitalization visit. ) - Discharge Summary/Plan Comment DC Time >30 min.: No - General Info Date of Service: 12/22/16 - Review of Systems General: Reports: Weakness, Fatigue HEENT: Reports: No Symptoms Pulmonary: Reports: Shortness of Breath Cardiovascular: Reports: No Symptoms Gastrointestinal: Reports: No Symptoms Genitourinary: Reports: No Symptoms Musculoskeletal: Reports: No Symptoms Skin: Reports: No Symptoms Neurological: Reports: No Symptoms Psychiatric: Reports: No Symptoms - Patient Data Vitals - Most Recent: Last Vital Signs Temp 98.5 F 12/22/16 07:57 Pulse 80 12/22/16 07:57 Resp 19 12/22/16 07:57 BP 150/75 H 12/22/16 07:57 Pulse Ox 94 L 12/22/16 07:57 Weight - Most Recent: 111 lb 6.4 oz I&O - Last 24 hours: Intake & Output 12/21/16 12/22/16 12/22/16 22:59 06:59 14:59 Intake Total 240 210 Balance 240 210 Lab Results - Last 24 hrs: Laboratory Results - last 24 hr 12/22/16 12/22/16 Range/Units 07:00 07:00 WBC 5.5 (4.0-10.2) K/uL RBC 4.83 (3.77-5.09) M/uL Hgb 14.8 (11.7-15.5) g/dL Hct 46.0 (34.0-46.0) % MCV 95.2 (84.0-98.0) fL MCH 30.6 (28.2-33.3) pg MCHC 32.2 (31.7-36.0) g/dL RDW 14.2 H (11.2-14.1) % Plt Count 112 L (150-350) K/uL Neut % (Auto) 86.5 H (45.0-80.0) % Lymph % (Auto) 5.3 L (10.0-50.0) % [place] % (Auto) 8.2 (2.0-14.0) % Eos % (Auto) 0.0 (0.0-5.0) % Baso % (Auto) 0.0 (0.0-2.0) % Neut # (Auto) 4.73 (1.40-7.00) K/uL Lymph # (Auto) 0.29 L (0.50-3.50) K/uL [place] # (Auto) 0.45 (0.00-1.00) K/uL Eos # (Auto) 0.00 (0.00-0.50) K/uL Baso # (Auto) 0.00 (0.00-0.20) K/uL Sodium 140 (136-145) mmol/L Potassium 4.0 (3.5-5.1) mmol/L Chloride 101 (98-107) mmol/L Carbon Dioxide 33.2 H (21.0-32.0) mmol/L BUN 32 H (7-18) mg/dL Creatinine 0.69 (0.51-1.17) mg/dL Est Cr Clr Drug Dosing 50.01 mL/min Estimated GFR (MDRD) > 60 mL/min Glucose 120 H (74-106) mg/dL Calcium 8.4 L (8.5-10.1) mg/dL WENDY Results - Last 24 hrs: Microbiology 12/22/16 07:55 Gram Stain - Final Sputum - Expectorated 12/19/16 16:01 Aerobic Blood Culture - Preliminary Blood - Venous - Lab Draw NO GROWTH AFTER 2 DAYS Anaerobic Blood Culture - Final Gram Positive Rods Med Orders - Current: Current Medications Acetaminophen (Tylenol) 650 mg PO Q3H PRN PRN Reason: Headache Last Admin: 12/21/16 10:51 Dose: 650 mg Albuterol/Ipratropium (Duoneb 3.0-0.5 Mg/3 Ml) 3 ml NEB Q4HRRT PRN PRN Reason: Shortness of Breath Last Admin: 12/22/16 05:28 Dose: 3 ml Artificial Tears (Liquitears 1.4% Ophth Soln) 1 ml EYEBOTH DAILY [facility] Last Admin: 12/22/16 08:35 Dose: Not Given Aspirin (Halfprin) 81 mg PO DAILY [facility] Last Admin: 12/22/16 08:26 Dose: 81 mg Furosemide (Lasix) 40 mg IVPUSH DAILY [facility] Last Admin: 12/22/16 08:11 Dose: 40 mg Azithromycin 500 mg/ Sodium (Chloride) 250 mls @ 250 mls/hr IV Q24H [facility] Last Admin: 12/21/16 16:24 Dose: 250 mls/hr Ceftriaxone Sodium 1 gm/ (Sodium Chloride) 100 mls @ 200 mls/hr IV BID [facility] Last Admin: 12/22/16 08:11 Dose: 200 mls/hr Methylprednisolone Sodium Succinate (Solu-Medrol) 40 mg IVPUSH Q6H [facility] Last Admin: 12/22/16 05:16 Dose: 40 mg Senna/Docusate Sodium (Senna Plus) 1 tab PO BID [facility] Last Admin: 12/22/16 08:26 Dose: 1 tab Sodium Chloride (Saline Flush) 10 ml FLUSH ASDIRECTED PRN PRN Reason: Keep Vein Open Last Admin: 12/22/16 08:11 Dose: 10 ml Tramadol HCl (Ultram) 50 mg PO Q8H PRN PRN Reason: Pain Discontinued Medications Albuterol/Ipratropium (Duoneb 3.0-0.5 Mg/3 Ml) 3 ml NEB ONETIME ONE Stop: 12/19/16 15:35 Last Admin: 12/19/16 15:48 Dose: 3 ml Furosemide (Lasix) mg PO BID [facility] Furosemide (Lasix) 20 mg PO SUTUTHSA [facility] Furosemide (Lasix) 40 mg PO MOWEFR [facility] Last Admin: 12/19/16 17:24 Dose: Not Given - Exam General: Reports: Alert, Oriented HEENT: Reports: Pupils Equal, Pupils Reactive, EOMI, Mucous Membr. Moist/[place] Neck: Reports: Supple Lungs: Reports: Clear to Auscultation, Normal Respiratory Effort. Denies: Crackles, Rales, Rhonchi Cardiovascular: Reports: Regular Rate, Regular Rhythm GI/Abdominal Exam: Normal Bowel Sounds, Soft, Non-Tender, No Organomegaly, No Distention, No Abnormal Bruit, No Mass, Pelvis Stable (Female) Exam: Deferred Rectal (Female) Exam: Deferred Back Exam: Reports: Normal Inspection, Full Range of Motion Extremities: Normal Inspection, Normal Range of Motion, Non-Tender, No Pedal Edema, Normal Capillary Refill Skin: Reports: Warm, Dry, Intact Neurological: Reports: No New Focal Deficit Psy/Mental Status: Reports: Alert, Normal Affect, Normal Mood *Q Meaningful Use (DIS) - VTE *Q VTE Criteria *Q: - Stroke *Q Stroke Criteria *Q: - AMI *Q AMI Criteria *Q:
[2016-12-22] MEDS: Acetaminophen 325 MG Tab PO PRN (14:12)
== END 2016-12-22 15:30 | disposition home or self-care (01) | DRG 871 ==
LOC: LL.ED 14:54 → LL.MS 15:57
PROVIDERS: ADMIT Family Medicine; ATTEND Family Medicine
DX: A40.3 Sepsis due to Streptococcus pneumoniae (principal); J18.9 Pneumonia, unspecified organism; J44.9 Chronic obstructive pulmonary disease, unspecified; I50.9 Heart failure, unspecified; Z87.891 Personal history of nicotine dependence; Z88.5 Allergy status to narcotic agent; Z79.82 Long term (current) use of aspirin; Z79.899 Other long term (current) drug therapy
CPT/HCPCS: 36000; 36415; 71020; 80048; 81001; 83735; 83880; 85025; 87040; 87070; 87205; 94640; 97110-GP; 97116-GP; 97161-GP; 97165-GO; 99285; A9270-GY; J0456; J0696; J1940; J2920; J7050